=== PATIENT | male | born 1985 | race African-American/Black ===

== ENCOUNTER 2017-01-03 03:00 | Emergency (ER) | payer BC, OTHER ==
[~2017-01-03] VITALS: Ht 180.3 cm; Wt 117.7 kg
[2017-01-03 03:17] VITALS: TEMP 37.1; Ht 180.3 cm; Wt 117.7 kg
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
[2017-01-03 04:47] LABS: BUN/CREATININE RATIO 8.9 (10-20); CALCIUM 8.5 mg/dl (8.5-10.1); CREATININE 1.64 mg/dl (0.60-1.40); POTASSIUM 3.3 mmol/L (3.5-5.1)
[2017-01-03 04:49] VITALS: BP 125/87; PULSE 86; O2SAT 98
== END 2017-01-03 05:00 | disposition home or self-care (01) ==
LOC: C.EDB 03:02
DX: F10.129 Alcohol abuse with intoxication, unspecified (principal); Y90.7 Blood alcohol level of 200-239 mg/100 ml; E87.6 Hypokalemia